=== PATIENT | female | born 1950 | race Caucasian/White ===

== ENCOUNTER 2021-04-22 13:53 | Emergency (ER) | payer MEDICARE ==
[2021-04-22] MEDS ORDERED: MEDROL 4MG DOSEP4 MG PO (14:58)
[2021-04-22] MEDS ORDERED: CYCLOBENZAPRINE10 MG PO (14:58)
== END 2021-04-22 15:33 | disposition home or self-care (01) ==
LOC: FER 13:53
DX: M62.830 Muscle spasm of back (principal); I10 Essential (primary) hypertension
CPT/HCPCS: J1100